=== PATIENT | male | born 1980 | race Caucasian/White ===

== ENCOUNTER → 2019-01-22 | Outpatient (CLI) | payer OTHER ==
--- NOTE | 2019-01-23 09:07 | RAD ---
Examination: 3 views of the left foot HISTORY: History of left foot pain for 3 months COMPARISON: None available Findings/ impression: The alignment of the tarsal bones, tarsometatarsal joints, metatarsophalangeal, interphalangeal joints grossly appears unremarkable. There is no acute fracture or dislocation identified. There is subchondral cystic change or small erosion identified in the medial aspect of the first metatarsal could be secondary to degeneration or gout. Correlate clinically. Electronically signed by: Diego Martin MD (01/23/2019 9:04 AM) [id number]
== END | disposition home or self-care (01) ==
LOC: RAD 16:58
PROVIDERS: ATTEND Registered Nurse
DX: M79.672 Pain in left foot (principal)
CPT/HCPCS: 73630

== ENCOUNTER → 2019-08-21 | Outpatient (CLI) | payer OTHER ==
[2019-08-21 18:24] LABS: BILIRUBIN,URINE NEG (NEG); CLARITY,URINE CLEAR; COLOR,URINE YELLOW; GLUCOSE,URINE NEG (NEG)
[2019-08-21 18:25] LABS: BACTERIA,URINE 0 /HPF (0-FEW); NITRITE,URINE NEG (NEG); RBC,URINE OCC /HPF (0-2); SQUAMOUS EPITHELIAL CELL,UR OCC /LPF; UROBILINOGEN,URINE 0.2 mg/dL (0.2 mg/dL); WBC,URINE OCC /HPF (0-4)
== END | disposition home or self-care (01) ==
LOC: PMG 17:45
PROVIDERS: ATTEND Registered Nurse
DX: Z20.2 Contact with and (suspected) exposure to infections with a predominantly sexual mode of transmission (principal)
CPT/HCPCS: 81001